=== PATIENT | male | born 2000 | race Caucasian/White ===

== ENCOUNTER 2021-08-05 02:35 | Emergency (ER) | payer BC ==
[2021-08-05] MEDS ORDERED: Ketorolac 15 MG/ML SDV IM ONE (02:51)
[2021-08-05] MEDS ORDERED: Ketorolac 30 MG/ML SDV IM ONE (02:52)
== END 2021-08-05 03:20 | disposition home or self-care (01) ==
LOC: JD.ED 02:35
DX: K08.89 Other specified disorders of teeth and supporting structures (principal); K02.9 Dental caries, unspecified; F17.210 Nicotine dependence, cigarettes, uncomplicated
CPT/HCPCS: 96372; 99282; J1885

== ENCOUNTER 2023-08-04 02:15 | Emergency (ER) | payer BC ==
[2023-08-04] MEDS: Lactated Ringers 1,000 ML IV ONE (02:47)
[2023-08-04 02:50] LABS: BASOPHILS ABSOLUTE AUTO 0.1 K/mm3 (0.0-0.2); BASOPHILS PERCENT AUTO 0.4 % (0.0-1.0); EOSINOPHILS PERCENT AUTO 0.1 % (0.0-6.0); HEMATOCRIT 49.4 % (42.0-52.0); HEMOGLOBIN 16.7 gm/dl (14.0-18.0); IMMATURE GRAN ABSOLUTE AUTO 0.08 K/mm3 (0.00-0.05); IMMATURE GRAN PERCENT AUTO 0.4 % (0.0-0.4); LYMPHOCYTES PERCENT AUTO 11.2 % (24.0-44.0); MEAN CORPUSCULAR HEMOGLOBIN 28.4 pg (28.0-32.0); MEAN CORPUSCULAR HGB CONC 33.8 g/dl (32.0-36.0); MEAN PLATELET VOLUME 8.7 fl (9.4-12.4); MONOCYTES ABSOLUTE AUTO 1.7 K/mm3 (0.0-0.8); MONOCYTES PERCENT AUTO 9.7 % (0.0-8.0); NEUTROPHILS ABSOLUTE AUTO 14.1 K/mm3 (1.8-7.7); NEUTROPHILS PERCENT AUTO 78.2 % (41.0-71.0); PLATELET COUNT,PLT 335 K/mm3 (150-400); RED BLOOD CELL COUNT 5.88 M/mm3 (4.52-5.90); WHITE BLOOD CELL COUNT,WBC 18.02 K/mm3 (3.9-11.3)
[2023-08-04 03:12] LABS: A/G RATIO 1.4 (1-2); ALBUMIN 3.9 g/dl (3.4-5.0); ANION GAP 14.6 (5-15); BILIRUBIN TOTAL 0.9 mg/dL (0.2-1.0); BUN/CREATININE RATIO 9.1 (14-18); CALCIUM 8.7 mg/dL (8.5-10.1); CREATININE 1.1 mg/dL (0.7-1.3); EST CRCL DRUG DOSING (CG) 119.36 mL/min; POTASSIUM,K 3.6 mEq/L (3.5-5.1); PROTEIN TOTAL,TP 6.7 g/dl (6.4-8.2)
[2023-08-04] MEDS: Ketorolac 15 MG/ML SDV IVPUSH ONE (03:36)
== END 2023-08-04 03:47 | disposition home or self-care (01) ==
LOC: JD.ED 02:15
DX: L55.0 Sunburn of first degree (principal); E86.0 Dehydration; F17.210 Nicotine dependence, cigarettes, uncomplicated
CPT/HCPCS: 36415; 80053; 85025; 96361; 96374; 99284-25; J1885; J7120